=== PATIENT | female | born 1995 | race African-American/Black ===

== ENCOUNTER 2021-04-13 02:17 | Emergency (ER) | payer OTHER ==
[~2021-04-13] VITALS: Ht 165.1 cm; Wt 113.4 kg
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
--- NOTE | 2021-04-13 02:25 | NUR ---
DR. CHEN AT BEDSIDE, MSE IN PROGRESS.
[2021-04-13] MEDS ORDERED: KETOROLAC TROMETHAMINE 30 MG INJ IM ONE ×2 (02:30→03:00)
[2021-04-13] MEDS ORDERED: MORPHINE SULFATE 4 MG/1 ML DISP.SYRIN IV ONE (02:30)
[2021-04-13] MEDS ORDERED: HYDROCODONE/APAP 10-325 MG TABLET PO ONE ×2 (02:30→03:00)
[2021-04-13] MEDS ORDERED: KETOROLAC TROMETHAMINE 30 MG INJ ONE (03:06)
[2021-04-13] MEDS ORDERED: HYDROCODONE/APAP 10-325 MG TABLET ONE (03:06)
--- NOTE | 2021-04-13 03:10 | NUR ---
[employer] AT BEDSIDE, TAKING PT TO XRAYS AND CT.
[2021-04-13 03:20] LABS: ALANINE AMINOTRANSFERASE 22 U/L (14-59); ALKALINE PHOSPHATASE 70 U/L (50-136); ASPARTATE AMINOTRANSFERASE 19 U/L (15-37); BILIRUBIN,TOTAL 0.1 mg/dL (0.2-1.0); CARBON DIOXIDE 25 mmol/L (21-32); CHLORIDE 106 mmol/L (98-107); GLUCOSE 120 mg/dL (74-106); POTASSIUM 3.8 mmol/L (3.5-5.1); TOTAL PROTEIN, SERUM 8.2 g/dL (6.4-8.2); UREA NITROGEN, BLOOD 10 mg/dL (7-18)
[2021-04-13 03:36] LABS: HEMATOCRIT 40.4 % (31.2-41.9); MEAN CORPUSCULAR HEMOGLOBIN 33.8 uug (24.7-32.8); MEAN CORPUSCULAR VOLUME 98.4 fL (75.5-95.3); PLATELET COUNT (AUTO) 292 K/uL (179-408)
--- NOTE | 2021-04-13 03:38 | NUR ---
PT RETURNED FROM XRAY/CT, STABLE CONDITION.
[2021-04-13] MEDS ORDERED: IBUP-1957 PO (04:42)
[2021-04-13 05:00] LABS: *BILIRUBIN,URIN NEGATIVE (NEGATIVE); *BLOOD, URINE NEGATIVE (NEGATIVE); *CLARITY,URINE CLEAR (CLEAR); *COLOR,URINE YELLOW (YELLOW); *KETONES,URINE NEGATIVE (NEGATIVE); *UROBILINOGEN,URINE 0.2 E.U./dl (NORMAL); LEUKOCYTE ESTERASE ,URINE NEGATIVE (NEGATIVE); NITRITE, URINE NEGATIVE (NEGATIVE); PH,URINE 5.5 (5.0-8.0); UGLUCOSE NEGATIVE (NEGATIVE)
[2021-04-13 05:01] LABS: *URINE HCG, QUAL NEGATIVE (NEGATIVE)
--- NOTE | 2021-04-13 05:16 | NUR ---
Patient discharged to home in stable condition. A/O x4, no SOB or labored breathing, afebrile. Written and verbal after care instructions given. Patient verbalizes understanding of instructions. Stressed follow up or return to ER for worsening s/s. Steady gait. Picked up by mother.
[2021-04-13 05:17] VITALS: BP 152/87
== END 2021-04-13 05:18 | disposition home or self-care (01) ==
LOC: ER 02:19
DX: S52.571A Other intraarticular fracture of lower end of right radius, initial encounter for closed fracture (principal); S00.81XA Abrasion of other part of head, initial encounter; S80.812A Abrasion, left lower leg, initial encounter; S80.811A Abrasion, right lower leg, initial encounter; V49.69XA Unspecified car occupant injured in collision with other motor vehicles in traffic accident, initial encounter; Y92.410 Unspecified street and highway as the place of occurrence of the external cause; R03.0 Elevated blood-pressure reading, without diagnosis of hypertension
CPT/HCPCS: 29125; 36415; 70450; 71045; 72125; 73110; 73610; 80053; 80320; 81003; 84702; 84703; 85025; 96372; 99285; J1885; A4663; G0480